=== PATIENT | male | born 2000 | race Two or more races ===

== ENCOUNTER 2024-04-03 18:50 | Emergency (ER) | payer OTHER ==
[~2024-04-03] VITALS: Ht 188 cm; Wt 134.7 kg
[2024-04-03] MEDS ORDERED: MIDAZOLAM HCL 50 MG/10 ML VIAL IV ONE (19:45)
[2024-04-03] MEDS ORDERED: MIDAZOLAM HCL/PF 5 MG/ML VIAL IV ONE (20:15)
== END 2024-04-03 21:59 | disposition home or self-care (01) ==
LOC: ER 18:52
DX: S43.084A Other dislocation of right shoulder joint, initial encounter (principal); W19.XXXA Unspecified fall, initial encounter; Y93.89 Activity, other specified; Y92.89 Other specified places as the place of occurrence of the external cause; Y99.8 Other external cause status; Z87.828 Personal history of other (healed) physical injury and trauma